=== PATIENT | female | born 1950 | race Caucasian/White ===

== ENCOUNTER 2023-09-05 18:09 | Inpatient (IN) | payer MEDICARE ==
[~2023-09-05] VITALS: Ht 162.6 cm; Wt 150.8 kg
[2023-09-05 19:24] LABS: APPEARANCE,URINE HAZY (CLEAR); BILIRUBIN,URINE NEGATIVE (NEGATIVE); COLOR,URINE YELLOW (YELLOW); GLUCOSE, URINE (UA) TRACE mg/dL (NEGATIVE); KETONES,URINE TRACE mg/dL (NEGATIVE); LEUKOCYTE ESTERASE ,URINE SMALL (NEGATIVE); NITRATE,URINE NEGATIVE (NEGATIVE); OCCULT BLOOD,URINE NEGATIVE (NEGATIVE); PH,URINE 5.5 (5.0-8.0); PH,URINE DRUG SCREEN 5.5 (5.0-8.0); PROTEIN,URINE TRACE mg/dL (NEGATIVE); SPECIFIC GRAVITIY, URINE 1.033 (1.003-1.030); UROBILINOGEN,URINE <=1.0 mg/dL (<=1.0)
[2023-09-05 19:43] LABS: BASOPHILS % (AUTO) 0.7 % (0.0-2.0); EOSINOPHILS % (AUTO) 1.2 % (1.0-6.0); HEMATOCRIT 43.7 % (36-46); HEMOGLOBIN 14.4 g/dL (12.0-16.0); LYMPHOCYTES # (AUTO) 1.6 K/uL (1.0-4.8); MEAN CORPUSCULAR HEMOGLOBIN 32.7 pg (26.0-34.0); MEAN CORPUSCULAR VOLUME 99 fL (80-100); MONOCYTES # (AUTO) 0.7 K/uL (0.1-1.0); MONOCYTES % (AUTO) 7.7 % (2.0-9.0); NEUTROPHILS # (AUTO) 6.1 K/uL (1.8-7.7); NEUTROPHILS % (AUTO) 71.4 % (40.0-70.0); PLATELET COUNT (AUTO) 188 K/uL (150-450); RED BLOOD CELL COUNT(AUTO) 4.41 MIL/uL (4.00-5.20); RED CELL DISTRIBUTION WIDTH 14.7 % (11.5-14.5); WHITE BLOOD COUNT (AUTO) 8.6 K/uL (4.5-11.0)
[2023-09-05 19:53] LABS: BACTERIA,URINE Rare /HPF (None Seen); RBC,URINE None Seen /HPF (0-2); SQUAMOUS EPITHELIAL CELL,UR Moderate /LPF (None Seen)
[2023-09-05 19:57] LABS: ALCOHOL, URINE DRUG SCREEN NEGATIVE (NEGATIVE); AMPHET/METH SCREEN,URINE NEGATIVE (NEGATIVE); BARBITURATE SCREEN, URINE NEGATIVE (NEGATIVE); BENZODIAZEPINES SCREEN,URINE POSITIVE (NEGATIVE); CANNABINOID SCREEN,URINE NEGATIVE (NEGATIVE); COCAINE SCREEN,URINE NEGATIVE (NEGATIVE); METHADONE SCREEN, URINE NEGATIVE (NEGATIVE); OPIATE SCREEN,URINE NEGATIVE (NEGATIVE); PHENCYCLIDINE SCREEN,URINE NEGATIVE (NEGATIVE)
[2023-09-05 20:04] LABS: TROPONIN I-HIGH SENSITIVITY 7 ng/L (<51)
[2023-09-05 20:05] LABS: LACTIC ACID 1.2 mmol/L (0.4-2.0)
[2023-09-05] MEDS: LORazepam 1 MG TABLET PO ONE ×2 (20:05→21:51)
[2023-09-05] MEDS: HALOPERIDOL 5 MG TABLET PO ONE (20:05)
[2023-09-05 20:17] LABS: ANION GAP 9 mmol/L (8-16); CALCIUM, TOTAL 9.5 mg/dL (8.8-10.5); CARBON DIOXIDE 27 mmol/L (22-29); CHLORIDE 104 mmol/L (98-107); CREATININE 0.82 mg/dL (0.60-1.30); GLOMERULAR FILTR. RATE CALC > 60 mL/min (>60); GLUCOSE,RANDOM 162 mg/dL (70-110); POTASSIUM 4.2 mmol/L (3.5-5.1); SODIUM SERUM 140 mmol/L (136-145); UREA NITROGEN, BLOOD 25 mg/dL (7-18)
[2023-09-05 20:20] LABS: AMMONIA 41 umol/L (11-32)
[2023-09-05 20:35] LABS: ALCOHOL, BLOOD (SERUM) < 3 mg/dL (0-10)
[2023-09-05 20:41] LABS: ALANINE AMINOTRANSFERASE 22 U/L (12-78); ALBUMIN 3.7 g/dL (3.4-5.0); ALKALINE PHOSPHATASE 72 U/L (46-116); ASPARTATE AMINOTRANSFERASE 22 U/L (15-37); BILIRUBIN,TOTAL 0.4 mg/dL (0.1-1.0); CREATINE KINASE, TOTAL ONLY 138 U/L (26-192); TOTAL PROTEIN, SERUM 7.1 g/dL (6.4-8.2)
[2023-09-05] MEDS: DiphenhydrAMINE HCL 25 MG CAPSULE PO ONE (21:51)
[2023-09-05 23:28] LABS: COVID AG,FIA SOURCE NASAL SWAB
[2023-09-05 23:56] LABS: SARS-COV2 (COVID) ANTIGEN,FIA Negative (Negative)
[2023-09-06] MEDS ORDERED: LORazepam 1 MG TABLET PO PRN (00:45)
[2023-09-06 01:03] VITALS: BP 143/70; PULSE 93; RESP 18; TEMP 96.9; O2SAT 96
[2023-09-06 01:16] VITALS: RESP 18
[2023-09-06] MEDS: LORazepam 2 MG TABLET PO PRN (02:19)
[2023-09-06] MEDS: ZOLPIDEM TARTRATE 10 MG TABLET PO PRN (02:19)
[2023-09-06] MEDS: HALOPERIDOL 5 MG TABLET PO PRN (02:19)
[2023-09-06] MEDS ORDERED: CloNIDine HCL 0.1 MG TABLET PO PRN (09:45)
[2023-09-06] MEDS ORDERED: PETROLATUM,WHITE 28 GM JELLY TP PRN (09:45)
[2023-09-06] MEDS ORDERED: LOPERAMIDE HCL 2 MG CAPSULE PO PRN (09:45)
[2023-09-06] MEDS ORDERED: ONDANSETRON HCL 4 MG TABLET PO PRN (09:45)
[2023-09-06] MEDS ORDERED: MAG HYDROX/ALUMINUM HYD/SIMETH ES 30 ML SUSPENSION UDCUP PO PRN (09:45)
[2023-09-06] MEDS ORDERED: DOCUSATE SODIUM 100 MG CAPSULE PO PRN (09:45)
[2023-09-06] MEDS ORDERED: GuaiFENesin/D-METHORPHAN [SUGAR-FREE] 200-20MG/10 ML SYRUP UDCUP PO PRN (09:45)
[2023-09-06] MEDS ORDERED: MAGNESIUM HYDROXIDE SUSPENSION 30 ML UDCUP PO PRN (09:45)
[2023-09-06] MEDS ORDERED: ALBUTEROL SULFATE HFA 90 MCG/PUFF 8 GM INHALER IH PRN (09:45)
[2023-09-06] MEDS: OLANZapine 5 MG TABLET PO SCH (11:45)
[2023-09-06 18:03] VITALS: BP 109/62; PULSE 93; RESP 18; TEMP 97.7; O2SAT 96
[2023-09-06] MEDS: ACETAMINOPHEN 325 MG TABLET PO PRN (18:07)
[2023-09-06 19:08] VITALS: RESP 16
[2023-09-06 21:04] VITALS: RESP 18
[2023-09-06] MEDS: NICOTINE 14 MG/24 HOUR PATCH TD PRN (23:44)
[2023-09-07 08:15] LABS: HEMOGLOBIN A1C 5.2 % (3.8-5.6)
[2023-09-07 08:28] LABS: CHOL/HDL RATIO 3.2 (3.9-5.7); THYROID STIMULATING HORMONE 0.94 uIU/mL (0.36-3.74)
[2023-09-07 09:50] VITALS: BP 110/58; PULSE 91; RESP 18; TEMP 98; O2SAT 95
[2023-09-07] MEDS: NICOTINE POLACRILEX 2 MG LOZENGE PO PRN (10:01)
[2023-09-07] MEDS: IBUPROFEN 400 MG TABLET PO PRN (16:49)
[2023-09-07 20:44] VITALS: BP 130/67; PULSE 94; RESP 18; TEMP 98.4; O2SAT 94
[2023-09-08 08:36] VITALS: BP 149/77; PULSE 83; RESP 18; TEMP 97.4; O2SAT 96
[2023-09-08 10:28] VITALS: BP 137/77; PULSE 79; RESP 18; TEMP 97.9; O2SAT 97
[2023-09-08 20:10] VITALS: BP 162/71; PULSE 84; RESP 18; TEMP 97.6; O2SAT 96
[2023-09-08 21:12] VITALS: BP 154/72; PULSE 82; RESP 18; TEMP 96.9; O2SAT 97
[2023-09-09 09:00] VITALS: BP 112/72; PULSE 79; RESP 18; TEMP 97.6
[2023-09-09 20:54] VITALS: BP 137/76; PULSE 90; RESP 18; TEMP 98.2; O2SAT 98
[2023-09-10 09:50] VITALS: BP 118/69; PULSE 74; RESP 18; TEMP 98.1; O2SAT 97
[2023-09-10 20:24] VITALS: BP 101/66; PULSE 97; RESP 18; TEMP 97.1; O2SAT 99
[2023-09-11 09:20] VITALS: BP 126/68; PULSE 86; RESP 18; TEMP 97.6; O2SAT 97
[2023-09-11 20:16] VITALS: BP 121/68; PULSE 82; RESP 18; TEMP 98.6; O2SAT 96
[2023-09-12] MEDS ORDERED: OLAN5TAB52 PO (11:52)
== END 2023-09-12 15:19 | disposition home or self-care (01) | DRG 885 ==
LOC: EMS 18:09 → 3EI 09-06 00:51
PROVIDERS: ADMIT Psychiatry & Neurology Child & Adolescent Psychiatry; ATTEND Psychiatry & Neurology Child & Adolescent Psychiatry
PROC: GZHZZZZ Group Psychotherapy (ICD-10-PCS; principal; 2023-09-06)
PROC: GZ52ZZZ Individual Psychotherapy, Cognitive (ICD-10-PCS; 2023-09-06)
DX: F29 Unspecified psychosis not due to a substance or known physiological condition (principal); E72.20 Disorder of urea cycle metabolism, unspecified; N39.0 Urinary tract infection, site not specified; F31.9 Bipolar disorder, unspecified; R73.9 Hyperglycemia, unspecified; Z20.822 Contact with and (suspected) exposure to COVID-19; Z79.899 Other long term (current) drug therapy; Z91.83 Wandering in diseases classified elsewhere
CPT/HCPCS: 71100; 80053; 80061; 80307; 81001; 82140; 82550; 83036; 83605; 84443; 84484; 85025; 93005; 99285; G0480; Q9967